=== PATIENT | female | born 1990 | race Caucasian/White ===

== ENCOUNTER 2017-05-19 20:46 | Emergency (ER) | payer OTHER ==
[2017-05-19 21:06] VITALS: BP 107/74; PULSE 72; RESP 18; TEMP 97.9; O2SAT 100
--- NOTE | 2017-05-19 21:26 | C.PDOC ---
History Of Present Illness 27 y/o female presents complaining of pain in the left wrist. States that she started a new job and has been typing a lot lately. Also reports she has a bad habit of sleeping with her hand folded under her pillow. No other injuries. No changes in sensation. Time Seen by Provider: 05/19/17 21:09 Chief Complaint (Nursing): Finger,Hand,&Wrist History Per: Patient History/Exam Limitations: no limitations Onset/Duration Of Symptoms: Days (x 2 weeks) Current Symptoms Are (Timing): Still Present Exacerbating Factor(s): Strenuous Use Of Affected Area Past Medical History Reviewed: Historical Data, Nursing Documentation, Vital Signs Vital Signs: Last Vital Signs Temp 97.9 F 05/19/17 21:01 Pulse 72 05/19/17 21:01 Resp 18 05/19/17 21:01 BP 107/74 05/19/17 21:01 Pulse Ox 100 05/19/17 22:01 - Medical History PMH: No Chronic Diseases Surgical History: No Surg Hx Family History: States: Unknown Family Hx - Social History Hx Tobacco Use: No Hx Alcohol Use: No Hx Substance Use: No - Immunization History Hx Tetanus Toxoid Vaccination: No Hx Influenza Vaccination: No Hx Pneumococcal Vaccination: No Review Of Systems Except As Marked, All Systems Reviewed And Found Negative. Musculoskeletal: Positive for: Hand Pain (left wrist) Neurological: Negative for: Weakness, Numbness Physical Exam - Physical Exam Appears: Non-toxic, No Acute Distress Skin: Normal Color, Warm, Dry Extremity: Normal ROM, Capillary Refill (is normal), No Deformity, No Swelling ( to wrist), Other (Tinel and phalens) Pulses: Left Radial: Normal, Right Radial: Normal Neurological/Psych: Oriented x3, Normal Speech, Normal Motor, Normal Sensation, No Other (neurological deficits) ED Course And Treatment O2 Sat by Pulse Oximetry: 100 (RA) Pulse Ox Interpretation: Normal Progress Note: Patient given wrist splint and ibuprofen prescription. Advised to f/u with hand specialist Disposition Counseled Patient/Family Regarding: Diagnosis, Need For Followup, Rx Given - Disposition Referrals: Shaik Winchester MD [Primary Care Provider] - Brian Díaz MD [Staff Provider] - Disposition: HOME/ ROUTINE Disposition Time: 21:24 Condition: STABLE Additional Instructions: Follow up with Hand specialist if not better in 1 week. return to ED if feel worse. Prescriptions: Ibuprofen [Motrin Tab] 400 mg PO Q8 #30 tab Instructions: Carpal Tunnel Exercises Forms: [facility] ([place]) - POA Present On Arrival: None - Clinical Impression Clinical Impression: Wrist pain, left - PA / PSYCHOSOCIAL REHABILITATION COUNSELOR / Resident Statement MD/DO has reviewed & agrees with the documentation as recorded. - Scribe Statement The provider has reviewed the documentation as recorded by the Scribe (Marni Woo) All medical record entries made by the Scribe were at my direction and personally dictated by me. I have reviewed the chart and agree that the record accurately reflects my personal performance of the history, physical exam, medical decision making, and the department course for this patient. I have also personally directed, reviewed, and agree with the discharge instructions and disposition.
== END 2017-05-19 21:53 | disposition home or self-care (01) ==
LOC: C.ER 20:46 → SUPCPDRO 20:46 → C.ER 21:53
DX: M25.532 Pain in left wrist (principal)